=== PATIENT | male | born 1970 | race Caucasian/White ===

== ENCOUNTER → 2017-04-25 | Outpatient (REF) | payer BC ==
[2017-04-25 13:52] LABS: ANION GAP 8 MEQ/L (8-16); BLOOD UREA NITROGEN 20 MG/DL (7-18); CALCIUM LEVEL 9.8 MG/DL (8.5-10.1); CARBON DIOXIDE LEVEL 27 MEQ/L (21-32); CHLORIDE LEVEL 103 MEQ/L (98-107); CREATININE FOR GFR 0.93 MG/DL (0.70-1.30); GLOMERULAR FILTRATION RATE > 60.0 (>60); GLUCOSE, FASTING 94 MG/DL (70-105); POTASSIUM SERUM 4.4 MEQ/L (3.5-5.1); SODIUM LEVEL 138 MEQ/L (136-145)
== END ==
LOC: M SFHCPLAZ 12:03
PROVIDERS: ATTEND Family Medicine
DX: I10 Essential (primary) hypertension (principal)

== ENCOUNTER → 2021-04-22 | Outpatient (CLI) | payer OTHER ==
--- NOTE | 2021-04-25 10:53 | REP ---
INDICATION: RADICULOPATHY, LUMBAR REGION. COMPARISON: MRI 08/08/2017. TECHNIQUE: Multiple sequences obtained in the axial and sagittal planes. FINDINGS: The vertebral bodies are normal in height and well aligned with normal lumbar lordosis. There is loss of water signal and disc degeneration at L3-4 and L5-S1, with mild disc space narrowing at L3-4 and moderate narrowing of L5-S1. There is a subchondral focus of marrow edema in the left superior L4 vertebral body which is nonspecific. Mild degenerative signal is seen along the inferior endplate of L5. No other abnormal osseous signal is seen. The conus is unremarkable. At L1-2 and L2-3 there is no significant disc bulging or herniation. There is no spinal stenosis or foraminal narrowing. At L3-4 there is very mild diffuse disc bulging, with mild hypertrophic change at the posterior facet joints. There is no spinal stenosis or foraminal narrowing. At L4-5 there is no significant disc bulging or herniation. There is no spinal stenosis or foraminal narrowing. At L5-S1 there is mild diffuse disc bulging with a small central disc protrusion. This is stable. There is no spinal stenosis or foraminal narrowing. IMPRESSION: Stable disc bulges as discussed in detail above with no spinal canal stenosis or foraminal stenosis. There is a small subchondral focus of marrow edema in the left superior L4 vertebral body, which is nonspecific and is most likely related to degenerative disc disease. Further evaluation may be made with postcontrast MR imaging if clinically indicated. <Electronically signed by Nirmal Gonzalez > 04/25/21 [id number]
== END ==
LOC: M RAD 18:06
PROVIDERS: ATTEND Nurse Practitioner Family
DX: M54.16 Radiculopathy, lumbar region (principal)

== ENCOUNTER → 2021-06-02 | Outpatient (CLI) | payer OTHER ==
--- NOTE | 2021-06-03 09:55 | REP ---
INDICATION: RT SHOULDER PAIN. COMPARISON: None. TECHNIQUE: Coronal oblique T1 and fat suppressed T2. Sagittal oblique fat suppressed T2. Axial [id number] and T2 FLASH. FINDINGS: There is moderate hypertrophic degenerative change seen involving the acromioclavicular joint. The acromion process is type 1. There is T2 hyper signal seen within and on both sides of the AC joint. There is no evidence of coracohumeral or coracoacromial ligamentous thickening. There is patchy T2 hyper signal seen throughout the supraspinatus tendon without evidence of musculotendinous retraction or muscular atrophy. There is T2 hyper signal seen within the subscapularis tendon. The biceps tendon resides within the bicipital groove. T2 hyper signal is seen in the biceps labral complex with linear T2 hyper signal seen in the superior labrum. There is no glenohumeral joint effusion. There is a small amount of fluid in the subcoracoid recess. IMPRESSION: 1. AC joint edema and fluid. 2. Supraspinatus tendinitis/tendinosis. 3. Subscapularis tendinitis/tendinosis. 4. Abnormal signal in the biceps labral complex suggestive of a tear and seen in conjunction with abnormal linear signal in the superior labrum. These could both be better evaluated with shoulder MRI arthrography if clinically indicated. Tears at this point cannot be ruled out. 5. Other findings as described above. <Electronically signed by Yahir Le > 06/03/21 [id number]
== END ==
LOC: M RAD 17:28
PROVIDERS: ATTEND Nurse Practitioner Family
DX: M75.31 Calcific tendinitis of right shoulder (principal)

== ENCOUNTER → 2021-06-07 | Outpatient (REF) | payer OTHER | LOC: M LAB REF 18:54 | PROVIDERS: ATTEND Nurse Practitioner Family | DX: L82.1 Other seborrheic keratosis (principal) ==

== ENCOUNTER → 2021-08-24 | Outpatient (REF) | payer BC | LOC: M LAB REF 16:08 | PROVIDERS: ATTEND Physician Assistant Medical | DX: M25.562 Pain in left knee (principal) ==

== ENCOUNTER → 2021-08-26 | Outpatient (CLI) | payer BC | LOC: M WUC 08-25 14:26 | PROVIDERS: ATTEND Physician Assistant Medical | DX: M25.561 Pain in right knee (principal) ==

== ENCOUNTER → 2021-10-19 | Outpatient (CLI) | payer BC ==
[~2021-10-19] MED LIST: ISOVUE-300 61% 50ML VIAL As Ordered ONE; LIDOCAINE 1% MDV 20ML VIAL As Ordered ONE; PROHANCE 279.3MG/ML 5ML VIAL As Ordered ONE
== END ==
LOC: M RADPRO 06:12
PROVIDERS: ATTEND Nurse Practitioner Family
DX: R93.7 Abnormal findings on diagnostic imaging of other parts of musculoskeletal system (principal)
CPT/HCPCS: 23350; 73223; 77002; A9576; Q9967

== ENCOUNTER → 2021-12-05 | Outpatient (CLI) | payer BC ==
[~2021-12-05] MED LIST changes: -ISOVUE-300 61% 50ML VIAL As Ordered ONE; +ISOVUE-370 76% 100ML VIAL As Ordered ONE; -LIDOCAINE 1% MDV 20ML VIAL As Ordered ONE; -PROHANCE 279.3MG/ML 5ML VIAL As Ordered ONE
== END ==
LOC: M RAD 11:33
PROVIDERS: ATTEND Nurse Practitioner Family
DX: I86.1 Scrotal varices (principal)

== ENCOUNTER → 2021-12-26 | Outpatient (CLI) | payer BC ==
[~2021-12-26] MED LIST changes: +HYDR-3713 PO; -ISOVUE-370 76% 100ML VIAL As Ordered ONE; +LISI10TA22 PO; +PANT40TA29 PO; +TADA5TAB PO
== END ==
LOC: M LABSMTC 11:22
PROVIDERS: ATTEND Anesthesiology
DX: Z01.812 Encounter for preprocedural laboratory examination (principal)

== ENCOUNTER 2021-12-28 06:48 | Day surgery (SDC) | payer BC ==
[~2021-12-28] VITALS: Ht 167.6 cm; Wt 88.0 kg
[~2021-12-28 06:48] MED LIST changes: +LIDOCAINE 2% 100MG/5ML SDV (FOR ANES.) As Ordered ONE; +NS 1,000 ML IV ONE; +fentaNYL 100 MCG/2 ML INJECTION As Ordered ONE; +propofoL 500 MG/50 ML VIAL As Ordered ONE
[2021-12-28 08:38] VITALS: BP 118/68
== END 2021-12-28 08:37 | disposition home or self-care (01) ==
LOC: M OPP 06:48
PROVIDERS: ATTEND Internal Medicine Gastroenterology
DX: Z12.11 Encounter for screening for malignant neoplasm of colon (principal); R12 Heartburn; K29.50 Unspecified chronic gastritis without bleeding; K64.0 First degree hemorrhoids; K22.89 Other specified disease of esophagus; I10 Essential (primary) hypertension; Z79.899 Other long term (current) drug therapy
CPT/HCPCS: 43239; 45378; 88305; J3010

== ENCOUNTER → 2022-02-07 | Outpatient (REF) | payer BC ==
[~2022-02-07] MED LIST changes: -LIDOCAINE 2% 100MG/5ML SDV (FOR ANES.) As Ordered ONE; -NS 1,000 ML IV ONE; -fentaNYL 100 MCG/2 ML INJECTION As Ordered ONE; -propofoL 500 MG/50 ML VIAL As Ordered ONE
== END ==
LOC: M LAB REF 16:29
PROVIDERS: ATTEND Obstetrics & Gynecology
DX: L66.2 Folliculitis decalvans (principal)

== ENCOUNTER → 2022-09-05 | Outpatient (CLI) | payer BC | LOC: M LABSMTC 10:51 | PROVIDERS: ATTEND Pain Medicine Interventional Pain Medicine | DX: Z01.812 Encounter for preprocedural laboratory examination (principal) ==

== ENCOUNTER → 2022-11-30 | Outpatient (CLI) | payer BC | LOC: M SOG 08:59 | PROVIDERS: ATTEND Physician Assistant | DX: M25.521 Pain in right elbow (principal) ==

== ENCOUNTER → 2023-01-04 | Outpatient (CLI) | payer BC ==
[2023-01-04 08:37] LABS: HEMATOCRIT 42.4 % (42.0-52.0); HEMOGLOBIN 14.9 g/dl (13.5-17.5); MEAN CORPUSCULAR HGB CONC 35.1 g/dl (32.0-36.5); MEAN CORPUSCULAR VOLUME 85.5 fl (80.0-96.0); PLATELET COUNT, AUTOMATED 219 10^3/uL (150-450); RED BLOOD COUNT 4.96 10^6/uL (4.30-6.10)
[2023-01-04 09:13] LABS: ALBUMIN 4.1 G/DL (3.2-5.2); ALKALINE PHOSPHATASE 51 U/L (46-116); ALT/SGPT 48 U/L (7.0-40); AST/SGOT 31 U/L (<34); BILIRUBIN,TOTAL 0.8 MG/DL (0.3-1.2); BLOOD UREA NITROGEN 19 MG/DL (9-23); CALCIUM LEVEL 9.4 MG/DL (8.5-10.1); CARBON DIOXIDE LEVEL 24 MMOL/L (20-31); CHLORIDE LEVEL 107 MMOL/L (98-107); CHOLESTEROL LEVEL 171 MG/DL (<200); CHOLESTEROL RISK RATIO 3.46 (<5); CREATININE FOR GFR 1.05 MG/DL (0.70-1.30); GLOMERULAR FILTRATION RATE > 60.0 (>56); GLUCOSE, FASTING 89 MG/DL (60-100); HDL CHOLESTEROL 49.3 MG/DL (>40); LDL CHOLESTEROL 109.3 MG/DL (<100); NON-HDL-C 121.7 MG/DL; POTASSIUM SERUM 4.7 MMOL/L (3.5-5.1); SODIUM LEVEL 136 MMOL/L (136-145); TOTAL PROTEIN 6.6 G/DL (5.7-8.2); TRIGLYCERIDES LEVEL 62 MG/DL (<150)
[2023-01-04 09:14] LABS: TOTAL 25(OH) VITAMIN D 37.8 NG/ML (20.0-100.0)
[2023-01-04 09:15] LABS: TESTOSTERONE 698 NG/DL (241-827)
[2023-01-04 09:50] LABS: HEMOGLOBIN A1c 5.3 % (4.0-6.0)
== END ==
LOC: M LAB 07:57
PROVIDERS: ATTEND Family Medicine
DX: I10 Essential (primary) hypertension (principal)

== ENCOUNTER 2023-01-13 14:43 | Emergency (ER) | payer BC ==
[~2023-01-13] VITALS: Ht 167.6 cm; Wt 86.3 kg
[2023-01-13] MEDS ORDERED: GABA-282 PO (18:59)
[2023-01-13 19:32] VITALS: BP 164/90; TEMP 97.9; O2SAT 98
== END 2023-01-13 19:39 | disposition home or self-care (01) ==
LOC: M ED 14:43
DX: M62.830 Muscle spasm of back (principal); I25.10 Atherosclerotic heart disease of native coronary artery without angina pectoris; M54.12 Radiculopathy, cervical region; M50.30 Other cervical disc degeneration, unspecified cervical region; K21.9 Gastro-esophageal reflux disease without esophagitis; I10 Essential (primary) hypertension; Z79.899 Other long term (current) drug therapy
CPT/HCPCS: 20552; 72125; 72128; 99283; S0020

== ENCOUNTER → 2023-02-19 | Outpatient (CLI) | payer OTHER, BC ==
[~2023-02-19] MED LIST changes: +GABA-282 PO
== END ==
LOC: M PAIN 13:00
PROVIDERS: ATTEND Nurse Practitioner Family
DX: M47.816 Spondylosis without myelopathy or radiculopathy, lumbar region (principal); M47.817 Spondylosis without myelopathy or radiculopathy, lumbosacral region; I10 Essential (primary) hypertension; Z79.891 Long term (current) use of opiate analgesic; Z79.82 Long term (current) use of aspirin; Z79.899 Other long term (current) drug therapy

== ENCOUNTER → 2023-09-07 | Outpatient (REF) | payer BC ==
[2023-09-07 12:56] LABS: INR 0.91
== END ==
LOC: M LAB REF 12:04
PROVIDERS: ATTEND Family Medicine
DX: Z01.818 Encounter for other preprocedural examination (principal)

== ENCOUNTER → 2023-11-19 | Outpatient (CLI) | payer BC ==
[2023-11-19 07:03] LABS: HEMATOCRIT 46.4 % (42.0-52.0); HEMOGLOBIN 15.8 g/dl (13.5-17.5); MEAN CORPUSCULAR HEMOGLOBIN 29.3 pg (27.0-33.0); MEAN CORPUSCULAR HGB CONC 34.1 g/dl (32.0-36.5); MEAN CORPUSCULAR VOLUME 86.1 fl (80.0-96.0); PLATELET COUNT, AUTOMATED 232 10^3/uL (150-450); RED BLOOD COUNT 5.39 10^6/uL (4.30-6.10); WHITE BLOOD COUNT 10.4 10^3/uL (4.0-10.0)
[2023-11-19 07:12] LABS: HEMOGLOBIN A1c 5.2 % (4.0-6.0)
[2023-11-19 07:25] LABS: PROSTATIC SPECIFIC AG MONITOR 0.83 NG/ML (< 4.00)
[2023-11-19 07:28] LABS: ALBUMIN 3.5 G/DL (3.2-5.2); ALKALINE PHOSPHATASE 72 U/L (46-116); ALT/SGPT 43 U/L (7.0-40); AST/SGOT 25 U/L (<34); BILIRUBIN,TOTAL 0.5 MG/DL (0.3-1.2); BLOOD UREA NITROGEN 17 MG/DL (9-23); CARBON DIOXIDE LEVEL 25 MMOL/L (20-31); CHLORIDE LEVEL 106 MMOL/L (98-107); CHOLESTEROL LEVEL 193 MG/DL (<200); CHOLESTEROL RISK RATIO 3.47 (<5); CREATININE FOR GFR 0.98 MG/DL (0.70-1.30); GLOMERULAR FILTRATION RATE > 60.0 (>56); GLUCOSE, FASTING 95 MG/DL (60-100); HDL CHOLESTEROL 55.6 MG/DL (>40); LDL CHOLESTEROL 108.2 MG/DL (<100); NON-HDL-C 137.4 MG/DL; POTASSIUM SERUM 4.7 MMOL/L (3.5-5.1); SODIUM LEVEL 138 MMOL/L (136-145); TOTAL PROTEIN 6.6 G/DL (5.7-8.2); TRIGLYCERIDES LEVEL 146 MG/DL (<150)
[2023-11-19 07:29] LABS: TOTAL 25(OH) VITAMIN D 70.1 NG/ML (20.0-100.0)
[2023-11-19 07:30] LABS: TESTOSTERONE 407 NG/DL (241-827)
== END ==
LOC: M LAB 06:13
PROVIDERS: ATTEND Family Medicine
DX: I10 Essential (primary) hypertension (principal)

== ENCOUNTER → 2024-07-02 | Outpatient (CLI) | payer BC ==
[~2024-07-02] MED LIST changes: +GABA-1172 PO; -GABA-282 PO; +ISOVUE-300 61% 100ML VIAL As Ordered ONE; +LIDOCAINE 1% MDV 20ML VIAL As Ordered ONE; +PROHANCE 279.3MG/ML 5ML VIAL As Ordered ONE; -TADA5TAB PO; +TADA5TAB94 PO
== END ==
LOC: M RAD 08:48
PROVIDERS: ATTEND Physician Assistant Surgical
DX: M75.52 Bursitis of left shoulder (principal); S43.432A Superior glenoid labrum lesion of left shoulder, initial encounter; X58.XXXA Exposure to other specified factors, initial encounter; Y92.9 Unspecified place or not applicable
CPT/HCPCS: 23350; 73223; 77002; A9576; Q9967

== ENCOUNTER → 2024-10-07 | Outpatient (CLI) | payer BC ==
[~2024-10-07] MED LIST changes: -ISOVUE-300 61% 100ML VIAL As Ordered ONE; -LIDOCAINE 1% MDV 20ML VIAL As Ordered ONE; -PROHANCE 279.3MG/ML 5ML VIAL As Ordered ONE
== END ==
LOC: M RAD 07:08
PROVIDERS: ATTEND Orthopaedic Surgery
DX: M25.562 Pain in left knee (principal)

== ENCOUNTER → 2024-10-16 | Outpatient (CLI) | payer BC | LOC: M PLAIMG 08:12 | PROVIDERS: ATTEND Orthopaedic Surgery | DX: M54.2 Cervicalgia (principal) ==